=== PATIENT | female | born 2000 | race Two or more races ===

== ENCOUNTER 2022-01-12 22:15 | Inpatient (IN) | payer OTHER ==
[2022-01-12] MEDS: ELECTROLYTE-148 SOLN 1,000 ML IV SCH (22:30)
[2022-01-12] MEDS ORDERED: PENICILLIN G POTASSIUM 5,000,000 UNIT in SODIUM CHLORIDE 250 ML IVPB ONE (22:50)
[2022-01-12] MEDS ORDERED: BETAMET ACET/BETAMET NA PH 30 MG/5 ML VIAL IM ONE (22:50)
[2022-01-12] MEDS ORDERED: BETAMET ACET/BETAMET NA PH 30 MG/5 ML VIAL ONE (23:02)
[2022-01-12 23:28] LABS: BASO % 0.7 % (0-2.0); EOS % 3.3 % (0-4.5); HEMOGLOBIN 9.3 GM/dL (10.7-15.3); LYMPH % 21.5 % (8-40); MCH 28.7 pg (25.7-33.7); MCHC 33.2 g/dl (32.0-36.0); MEAN CELL VOLUME 86.7 fl (80-96); MEAN PLT VOLUME 8.1 fl (7.5-11.1); MONO % 12.4 % (3.8-10.2); NEUT % 62.1 % (42.8-82.8); PLATELET COUNT 377 10^3/uL (134-434); RBC 3.24 M/mm3 (3.60-5.2); WHITE BLOOD COUNT 6.3 K/mm3 (4.0-10.0)
[2022-01-12 23:38] LABS: INR 0.94 (0.83-1.09); PROTHROMBIN TIME (PATIENT) 10.8 SEC (9.7-13.0)
[2022-01-12 23:41] LABS: ACTIVATED PTT 25.1 SECONDS (25.2-36.5)
[2022-01-12 23:50] LABS: BLOOD UREA NITROGEN 8.8 mg/dL (7-18); CALCIUM 8.6 mg/dL (8.5-10.1)
[2022-01-12 23:54] LABS: CREATININE 0.6 mg/dL (0.55-1.3)
[2022-01-13 01:30] LABS: URINE BARBITURATES NEGATIVE (NEGATIVE)
[2022-01-13 01:31] LABS: COCAINE, UR NEGATIVE (NEGATIVE); METHADONE, UR NEGATIVE (NEGATIVE); OPIATES, URI NEGATIVE (NEGATIVE); PHENCYCLIDINE,URINE NEGATIVE (NEGATIVE); URINE AMPHETAMINES NEGATIVE (NEGATIVE); URINE BENZODIAZEPINES NEGATIVE (NEGATIVE)
[2022-01-13] MEDS ORDERED: BUTORPHANOL TARTRATE 2 MG/ML VIAL ONE (01:32)
[2022-01-13] MEDS ORDERED: PROMETHAZINE HCL 25 MG/1 ML VIAL ONE (01:32)
[2022-01-13] MEDS: VANCOMYCIN 1 GM in D5W (PRE-DOCKED) 1,000 MG/250 ML IVPB SCH ×3 (01:40→19:07)
[2022-01-13] MEDS ORDERED: BUTORPHANOL TARTRATE 2 MG/ML VIAL IVPB ONE (01:40)
[2022-01-13] MEDS ORDERED: PROMETHAZINE HCL 25 MG/1 ML VIAL IVPB ONE (01:40)
[2022-01-13] MEDS ORDERED: VANCOMYCIN 1 GM in D5W (PRE-DOCKED) 1,000 MG/250 ML IVPB SCH (02:00)
[2022-01-13 02:07] VITALS: BMI 21.3
[2022-01-13] MEDS ORDERED: PENICILLIN G POTASSIUM 2,500,000 UNIT in SODIUM CHLORIDE 100 ML IVPB SCH (03:00)
[2022-01-13] MEDS ORDERED: FENTANYL/BUPIVACAINE/NS/PF - PCEA - 50 ML DISP.SYRIN EP ONE ×2 (04:17→08:44)
[2022-01-13] MEDS ORDERED: BUPIVACAINE HCL/PF 0.25% (2.5MG/ML) 10 ML VIAL ONE (04:37)
[2022-01-13] MEDS ORDERED: LIDOCAINE HCL/EPINEPHRINE/PF 20 ML VIAL ONE (04:37)
[2022-01-13] MEDS ORDERED: LIDOCAINE HCL/PF 2% SDV 5ML VIAL ONE (04:41)
[2022-01-13] MEDS ORDERED: NALOXONE HCL 0.4 MG/ML VIAL IVPUSH PRN (05:08)
[2022-01-13] MEDS: FENTANYL/BUPIVACAINE/NS/PF - PCEA - 50 ML DISP.SYRIN EP SCH (07:00)
[2022-01-13] MEDS: DEXTROSE 5%-LACTATED RINGERS 1,000 ML IV SCH (07:33)
[2022-01-13 07:40] LABS: POC NITRAZINE POS
[2022-01-13] MEDS ORDERED: OXYTOCIN 20 UNITS in 0.9% NS 20 UNIT/1,000 ML INFUS.BAG IV ONE (09:03)
[2022-01-13] MEDS ORDERED: LIDOCAINE HCL 1% PRESERVATIVE FREE - 30ML VIAL ONE (09:07)
[2022-01-13] MEDS ORDERED: BISACODYL 10 MG SUPP.RECT RC PRN (11:02)
[2022-01-13] MEDS ORDERED: oxyCODONE HCL 5 MG TABLET PO PRN (11:02)
[2022-01-13] MEDS ORDERED: ACETAMINOPHEN 325 MG TABLET (FP) PO PRN (11:02)
[2022-01-13] MEDS ORDERED: METHYLERGONOVINE MALEATE 0.2 MG/1 ML AMP IM PRN (11:02)
[2022-01-13] MEDS ORDERED: WITCH HAZEL 50% (TUCKS) 40 PAD/JAR PAD TP PRN (11:02)
[2022-01-13] MEDS ORDERED: BENZOCAINE 28 GM HEMORRHOIDAL OINTMENT TP PRN (11:02)
[2022-01-13] MEDS ORDERED: BENZOCAINE 20% 57 GM BOTTLE TP PRN (11:02)
[2022-01-13] MEDS ORDERED: OXYTOCIN 20 UNITS in 0.9% NS 20 UNIT/1,000 ML INFUS.BAG IV SCH (11:15)
[2022-01-13] MEDS ORDERED: IBUPROFEN 600 MG TABLET (FP) PO ONE (12:45)
[2022-01-13] MEDS: IBUPROFEN 600 MG TABLET (FP) PO PRN ×2 (12:45→22:39)
[2022-01-14 07:01] LABS: BASO % 0.2 % (0-2.0); EOS % 0.2 % (0-4.5); HEMATOCRIT 25.9 % (32.4-45.2); HEMOGLOBIN 8.6 GM/dL (10.7-15.3); LYMPH % 22.6 % (8-40); MCHC 33.2 g/dl (32.0-36.0); MEAN CELL VOLUME 87.4 fl (80-96); MEAN PLT VOLUME 8.7 fl (7.5-11.1); MONO % 9.1 % (3.8-10.2); NEUT % 67.9 % (42.8-82.8); PLATELET COUNT 344 10^3/uL (134-434); RBC 2.96 M/mm3 (3.60-5.2); RDW 13.9 % (11.6-15.6)
[2022-01-14] MEDS: IBUPROFEN 600 MG TABLET (FP) PO PRN ×2 (09:55→18:10)
[2022-01-14] MEDS: FENTANYL/BUPIVACAINE/NS/PF - PCEA - 50 ML DISP.SYRIN EP SCH (15:57)
[2022-01-14] MEDS ORDERED: SENNOSIDES/DOCUSATE COMBO (SENNA PLUS) TABLET (UD) PO PRN (22:00)
[2022-01-15] MEDS: DEXTROSE 5%-LACTATED RINGERS 1,000 ML IV SCH (04:15)
[2022-01-15] MEDS: ELECTROLYTE-148 SOLN 1,000 ML IV SCH (04:16)
[2022-01-15] MEDS: IBUPROFEN 600 MG TABLET (FP) PO PRN (10:21)
[2022-01-15 10:46] VITALS: BP 109/68; PULSE 70; TEMP 98.1
== END 2022-01-15 13:55 | disposition home or self-care (01) | DRG 560 ==
LOC: JLDR 22:15 → J3W 01-13 13:00
PROVIDERS: ADMIT Specialist; ATTEND Specialist
PROC: 10E0XZZ Delivery of Products of Conception, External Approach (ICD-10-PCS; principal; 2022-01-13)
PROC: 0W8NXZZ Division of Female Perineum, External Approach (ICD-10-PCS; 2022-01-13)
DX: O42.013 Preterm premature rupture of membranes, onset of labor within 24 hours of rupture, third trimester (principal); O24.429 Gestational diabetes mellitus in childbirth, unspecified control; O99.02 Anemia complicating childbirth; D64.9 Anemia, unspecified; Z3A.36 36 weeks gestation of pregnancy; Z37.0 Single live birth
CPT/HCPCS: 36415; 59409; 80048; 80307; 82962; 83986-QW; 85025; 85610; 85730; 86780; 86850; 86900; 86901; 96372; C9803; U0003; U0005

== ENCOUNTER 2022-01-17 16:28 | Emergency (ER) | payer OTHER ==
[2022-01-17 17:08] VITALS: BP 107/62; PULSE 97; TEMP 98.2; BMI 21.7
[2022-01-17] MEDS ORDERED: IBUPROFEN 400 MG TABLET (FP) PO ONE ×2 (17:58→17:59)
[2022-01-17 19:20] LABS: EPI CELLS 10 /uL (0-25.1); HYALINE CASTS 2 /uL (0-3.1); URINE APPEARANCE CLEAR; URINE BACTERIA 16 /uL (0-1359); URINE BILIRUBIN NEGATIVE (NEGATIVE); URINE COLOR YELLOW; URINE GLUCOSE (UA) NEGATIVE (NEGATIVE); URINE KETONE TRACE (NEGATIVE); URINE LEUK ESTERASE NEGATIVE (NEGATIVE); URINE NITRITE NEGATIVE (NEGATIVE); URINE PROTEIN NEGATIVE (NEGATIVE); URINE RBC 13 /uL (0-23.9); URINE UROBILINOGEN 0.2 mg/dL (0.2-1.0); URINE WBC 38 /uL (0-25.8)
[2022-01-17 21:25] LABS: URINE CRYSTALS FEW /hpf
== END 2022-01-17 19:37 | disposition home or self-care (01) ==
LOC: JER 16:28
DX: O90.89 Other complications of the puerperium, not elsewhere classified (principal); O92.29 Other disorders of breast associated with pregnancy and the puerperium
CPT/HCPCS: 81003; 87086; 99283-25